=== PATIENT | male | born 1995 | race Caucasian/White ===

== ENCOUNTER 2017-03-11 12:35 | Emergency (ER) | payer SELFPAY ==
[~2017-03-11] VITALS: Ht 175.3 cm; Wt 84.0 kg
[2017-03-11] MEDS ORDERED: MORPHINE SULFATE 4 MG/ML CPJ (NOT FOR IM USE) IV STA (12:47)
[2017-03-11] MEDS ORDERED: ONDANSETRON HCL 4MG/2ML VIAL IV STA (12:47)
[2017-03-11] MEDS ORDERED: PROPOFOL 200MG/20ML VIAL IV ONE (14:45)
[2017-03-11] MEDS ORDERED: ONDANSETRON HCL 4MG/2ML VIAL IV ONE (14:45)
[2017-03-11] MEDS ORDERED: KETAMINE HCL 50 MG/ML 10ML IV ONE (14:45)
[2017-03-11] MEDS ORDERED: MORPHINE SULFATE 4 MG/ML CPJ (NOT FOR IM USE) IV ONE (15:15)
[2017-03-11] MEDS ORDERED: DIPHENHYDRAMINE 50MG/ML VIAL ONE (15:28)
[2017-03-11] MEDS ORDERED: DIPHENHYDRAMINE 50MG/ML VIAL IV ONE (16:15)
[2017-03-11 17:06] VITALS: BP 125/88
== END 2017-03-11 17:19 | disposition home or self-care (01) ==
LOC: ER 12:35
DX: S53.124A Posterior dislocation of right ulnohumeral joint, initial encounter (principal); W19.XXXA Unspecified fall, initial encounter; Y93.89 Activity, other specified; Y92.89 Other specified places as the place of occurrence of the external cause
CPT/HCPCS: 24600; 73060; 73070; 93005; 96374; 96375; 96376; 99152; 99285; J1200; J2270; J2405; J3490; Z7610; J2704